=== PATIENT | female | born 1995 | race Caucasian/White ===

== ENCOUNTER 2020-02-09 09:25 | Emergency (ER) | payer SELFPAY ==
[~2020-02-09] VITALS: Ht 152.4 cm; Wt 68.2 kg
[2020-02-09 09:30] VITALS: TEMP 98.3
[2020-02-09] MEDS ORDERED: ZOFRAN ODT8 MG PO (09:40)
[2020-02-09 09:43] LABS: BASO # 0.1 (0.0-0.2); BASO % 0.6 % (0.0-2.0); EOS # 0.2 (0.0-0.7); EOS % 1.6 % (0-4.0); GRAN % 51.7 % (42.2-75.2); HEMATOCRIT 43.3 % (37.0-47.0); LYMPH # 3.5 (1.2-3.4); LYMPH % 36.1 % (20.0-51.0); MEAN CELL VOLUME 92 fl (80.0-100.0); MEAN CORPUSCULAR HEMOGLOBIN 30 pg (27.0-31.0); MEAN CORPUSCULAR HGB CONC 32 g/dl (33.0-37.0); MEAN PLATELET VOLUME 9.5 fl (7.4-10.4); MONO # 0.9 (0.1-0.6); MONO % 9.2 % (1.7-9.3); PLATELET COUNT 411 K/mm3 (130-400); RED BLOOD COUNT 4.72 M/mm3 (4.10-5.30); REDCELL DISTRIBUTION WIDTH-CV 11.8 % (11.5-14.5)
[2020-02-09 09:58] LABS: ALANINE AMINOTRANSFERASE 12 U/L (4-34); ALBUMIN 4.2 gm/dL (3.5-5.0); ALKALINE PHOSPHATASE 64 U/L (50-136); ANION GAP 8 mmol/L (7-16); AST,SGOT 22 U/L (15-37); BILIRUBIN,TOTAL 0.7 mg/dL (0.0-1.0); BLOOD UREA NITROGEN 14 mg/dL (7-17); CALCIUM 9.1 mg/dL (8.4-10.2); CARBON DIOXIDE 25 mmol/L (22-30); CHLORIDE 104 mmol/L (98-107); CREATININE, serum 1.02 (0.52-1.25); GLUCOSE 142 mg/dL (74-106); LIPASE 57 U/L (23-300); POTASSIUM 3.7 mmol/L (3.4-5.0); SODIUM 137 mmol/L (137-145); TOTAL PROTEIN 7.2 gm/dL (6.4-8.2)
[2020-02-09 09:59] LABS: C-REACTIVE PROTEIN < 0.5 mg/dL (0.0-0.9)
[2020-02-09] MEDS ORDERED: NORCO 325 MG-51 TAB PO ×2 (10:21→10:23)
[2020-02-09] MEDS ORDERED: FLOMAX 0.40.4 MG/CAP PO (10:21)
[2020-02-09 10:58] LABS: COLLECTION METHOD CLEAN CATCH
[2020-02-09 11:06] LABS: MUCOUS Present /lpf; PH 6 (5-8); SQUAMOUS EPITHELIAL 0-2 /hpf; URINE APPEARANCE Clear; URINE BACTERIA None Seen /hpf; URINE BILIRUBIN Negative (NEGATIVE); URINE BLOOD 1+ (NEGATIVE); URINE COLOR Yellow; URINE GLUCOSE Negative (NEGATIVE); URINE KETONE Negative (NEGATIVE); URINE LEUKOCYTE ESTERASE Negative (NEGATIVE); URINE NITRATE Negative (NEGATIVE); URINE PROTEIN(semi-quant) Negative (NEGATIVE); URINE UROBILINOGEN Negative (NEGATIVE)
[2020-02-09 11:25] VITALS: BP 104/62; PULSE 90
== END 2020-02-09 11:25 | disposition home or self-care (01) ==
LOC: COL.ER 09:25
PROVIDERS: Emergency Medicine
DX: N20.1 Calculus of ureter (principal); R73.9 Hyperglycemia, unspecified; Z84.1 Family history of disorders of kidney and ureter; Z32.02 Encounter for pregnancy test, result negative
CPT/HCPCS: J1885; J2270; J2405; J7030; Q9967

== ENCOUNTER 2021-02-01 04:26 | Inpatient (IN) | payer OTHER ==
[2021-02-01] VITALS (68 sets, daily range): BP systolic 69–139; BP diastolic 45–76; PULSE 54–116; TEMP 97.8–100.1
[~2021-02-01] VITALS: Ht 160 cm; Wt 85.5 kg
[~2021-02-01 04:26] MED LIST: FLOMAX 0.40.4 MG/CAP PO; NORCO 325 MG-51 TAB PO; ZOFRAN ODT8 MG PO
--- NOTE | 2021-02-01 04:30 | NUR ---
0430- patient and spouse ambulatory to the unit. patient orientated to room and changed into clean gown. patient reports gfm, no bleeding, occasional contractions and srom at 0253 this morning. patient is a at 39.2. 0340- EFM and TOCO on and tracing. Vitals taken, assessment completed. SVE reveals patient did SROM and she is 1/50/-3. Provider tin container straightener was on unit for another patient and this RN advised her of this patient and she verbally gave orders to admit her.
[2021-02-01] MEDS ORDERED: PRENATAL TABLET PO (06:03)
[2021-02-01] MEDS ORDERED: COLACE 100100 MG/CAP PO (06:04)
[2021-02-01] MEDS ORDERED: MACROBID 1100 MG/CAP PO (06:05)
[2021-02-01] MEDS ORDERED: PROMETHAZINE12.5 M5 PO (06:05)
--- NOTE | 2021-02-01 06:20 | NUR ---
Bedside report received by Alda SANDERS. Patient updated on plan of care. IV started in right hand, blood obtained and to lab, LR infusing. Patient getting more uncomfortable with contractions at this time. 0720: Dr. Shaikh called and updated. See physician notification. 0755: Dr. Shaikh at nurses station and updated on plan of care. Dr. Shaikh asked if patient was ever covid swabbed due to recent cold/sickness. Patient asked of symptoms, patient states "I have had a cold for about 3 weeks and went to Doctor, they thought it was sinus infection and was put on antibiotics, I currently have a wet mucuosy cough, my nose is less stuffy, within this last week I was unable to smell or taste as well, have not been having a fever, and was planning to go get covid tested today since Dr. Shaikh recommended it on Tuesday at my appointment". 0805: Dr. Shaikh at bedside assessing patient and FHR strip. Discusses plan of care. 0807: Bedside sono done at this time and vertex position confirmed. Patient requests epidural and C.Jerod TAPE CONTROL SKIN OR SPAR MILL OPERATOR called and notified. 0845: Patient sat up for placement of epidural and C.Jerod TAPE CONTROL SKIN OR SPAR MILL OPERATOR at bedside. FHR monitor intermittently tracing maternal heart rate due to maternal position. 0838: Single shot given and patient tolerates well. 0839: Test dose given and patient tolerates well. 0855: Patient repositioned and plan of care/safety precautions discussed. 1000: This RN at bedside and rapid covid swab done and patient tolerates well. 0805: Dr. Shaikh at bedside
[2021-02-01 06:48] LABS: HEMATOCRIT 39.9 % (37.0-47.0); HEMOGLOBIN 13.5 g/dl (12.5-16.0); MEAN CELL VOLUME 91 fl (80.0-100.0); MEAN CORPUSCULAR HEMOGLOBIN 31 pg (27.0-31.0); MEAN CORPUSCULAR HGB CONC 34 g/dl (33.0-37.0); MEAN PLATELET VOLUME 9.8 fl (7.4-10.4); PLATELET COUNT 216 K/mm3 (130-400); RED BLOOD COUNT 4.39 M/mm3 (4.10-5.30)
[2021-02-01 07:44] LABS: BAND 2 % (0-10); LYMPHOCYTE 19 % (20.0-51.0); NEUTROPHILS 70 % (42.0-75.2); PLATELET ESTIMATE NORMAL (NORMAL)
--- NOTE | 2021-02-01 10:40 | NUR ---
Patient updated that her covid came back positive and plan of care discussed and quesitons answered.
--- NOTE | 2021-02-01 12:40 | NUR ---
FHR tracing recurrent subtle late decelerations. Patient repositioned. 1330: FHR baseline increasing to 160-165bpm with moderate variability noted. Dr. Shaikh called and updated. See physician notification. 1344: Patient wedged right with peanut ball in placed and FHR decreasing to 145bpm for approx. 3 minutes and returns to 170bpm. 1500: FHR baseline continues in the 160-170bpm with moderate variability and Dr. Shaikh aware. No new orders.
--- NOTE | 2021-02-01 17:00 | NUR ---
FHR baseline 175-180bpm and Dr. Shaikh aware and updated. See physician notification. Temperature 100.[address] Shaikh order 1g of tylenol PO. Patient repositioned. 1730: FHR baseline continues in the 170-180bpm. 174: at bedside assessing FHR strip and patient, updated on plan of care. SVE 4-5/90/-2. No new orders at this time. Morrison catheter emptied. 175: Dr. Shaikh at nurses station reviewing FHR strip. Orders for drawbridge operator nurse to recheck temperature and SVE at 1900 and if FHR strip does not have moderate variabilty to call him. 1814: Zoya SANDERS given report.
--- NOTE | 2021-02-01 22:00 | NUR ---
2199 DR MADLONADO IN ROOM AND SVE WITH NO CERVICAL CHANGE SINCE LAST EXAM. C/SECT DISCUSSED, 2204 C/SECT CALLED. BIRD RAISER NOTIFIED. 2210 TO OR PER BED.
[2021-02-02] VITALS (13 sets, daily range): BP systolic 99–130; BP diastolic 54–79; PULSE 49–80; TEMP 97.6–98.5
--- NOTE | 2021-02-02 00:45 | NUR ---
0045 PERICARE DONE AND PADS CHANGED. BINDER ON. LEGS STILL HEAVY AND NUMB. EPID CATH REMOVED. BABY TO BREAST.
[2021-02-02 07:03] LABS: HEMATOCRIT 37.5 % (37.0-47.0)
--- NOTE | 2021-02-02 07:30 | NUR ---
Assisted out of bed for first time post delivery. Steady gait noted. Morrison catheter removed by this fiction and nonfiction writer prose. [place] care provided. Note patient spontaneously voids following removal of Morrison catheter. C/O pain on right side of incision. Encouraged coughing and deep breathing. Note prior to coughing and deep breathing O2 sat 94% on room air. Following, 97% on room air. Encouraged frequent coughing and deep breathing with instruction to splint abdominal incision while doing so. Note patient cough wet. Instructed to empty bladder every 2 hours, even if she does not feel the urge to void. Encouraged increased po fluid intake. Verbalizes understanding.
[2021-02-03] MEDS ORDERED: IBU600 MG PO (07:41)
[2021-02-03] MEDS ORDERED: PERCOCET 325 MG1 TA2 PO (07:42)
[2021-02-03 09:30] VITALS: BP 111/73; PULSE 82; TEMP 97.9
--- NOTE | 2021-02-03 14:00 | NUR ---
Discharge instructions and follow up care reviewed with pt and at the bedside. Both verbalized an understanding, agreed with the plan and state no questions or concerns at this time.
--- NOTE | 2021-02-03 17:00 | NUR ---
Pt discharged home via private vehicle with secured in rear facing car seat.
== END 2021-02-03 17:00 | disposition home or self-care (01) | DRG 786 ==
LOC: LDRO 04:26 → LDR 05:27
PROVIDERS: Obstetrics & Gynecology; ADMIT Obstetrics & Gynecology
PROC: 10D00Z1 Extraction of Products of Conception, Low, Open Approach (ICD-10-PCS; principal; 2021-02-01)
DX: O75.3 Other infection during labor (principal); U07.1 COVID-19; O98.52 Other viral diseases complicating childbirth; O98.82 Other maternal infectious and parasitic diseases complicating childbirth; B37.9 Candidiasis, unspecified; O76 Abnormality in fetal heart rate and rhythm complicating labor and delivery; Z3A.39 39 weeks gestation of pregnancy; Z37.0 Single live birth; Z87.442 Personal history of urinary calculi; O62.1 Secondary uterine inertia
CPT/HCPCS: J0690; J0696; J1100; J1885; J2590; J7120

== ENCOUNTER → 2022-04-08 | Outpatient (CLI) | payer BC ==
[~2022-04-08] MED LIST changes: +COLACE 100100 MG/CAP PO; +IBU600 MG PO; +MACROBID 1100 MG/CAP PO; +PERCOCET 325 MG1 TA2 PO; +PRENATAL TABLET PO; +PROMETHAZINE12.5 M5 PO
== END ==
LOC: COL.RAD 06:59
DX: O20.0 Threatened abortion (principal); Z3A.01 Less than 8 weeks gestation of pregnancy

== ENCOUNTER 2022-04-18 05:25 | Emergency (ER) | payer BC ==
[~2022-04-18] VITALS: Ht 157.5 cm; Wt 79.5 kg
[2022-04-18 05:31] VITALS: TEMP 97.9
[2022-04-18 06:03] LABS: BASO # 0.1 K/mm3 (0.0-0.2); BASO % 0.6 % (0.0-2.0); EOS # 0.2 K/mm3 (0.0-0.7); EOS % 2.1 % (0.0-4.0); GRAN # 7.6 K/mm3 (1.4-6.5); GRAN % 70.9 % (42.2-75.2); HEMOGLOBIN 14.1 g/dl (12.5-16.0); LYMPH % 18.2 % (20.0-51.0); MEAN CELL VOLUME 90 fl (80.0-100.0); MEAN CORPUSCULAR HEMOGLOBIN 30 pg (27-31); MEAN CORPUSCULAR HGB CONC 34 g/dl (33.0-37.0); MEAN PLATELET VOLUME 9.5 fl (7.4-10.4); MONO # 0.8 K/mm3 (0.1-0.6); MONO % 7.6 % (1.7-9.3); PLATELET COUNT 322 K/mm3 (130-400); RED BLOOD COUNT 4.67 M/mm3 (4.10-5.30); REDCELL DISTRIBUTION WIDTH-CV 12.1 % (11.5-14.5)
[2022-04-18] MEDS ORDERED: NORCO 325 MG-51 TAB PO (07:09)
[2022-04-18 07:46] VITALS: BP 108/50; PULSE 76
== END 2022-04-18 07:46 | disposition home or self-care (01) ==
LOC: COL.ER 05:25
PROVIDERS: Family Medicine
DX: O20.0 Threatened abortion (principal); Z28.310 Unvaccinated for COVID-19
CPT/HCPCS: J2550; J7120

== ENCOUNTER 2022-06-17 02:16 | Emergency (ER) | payer BC ==
[~2022-06-17] VITALS: Ht 157.5 cm; Wt 79.5 kg
[2022-06-17 02:19] VITALS: BP 140/86; TEMP 98
[2022-06-17 03:01] VITALS: PULSE 68
== END 2022-06-17 03:03 | disposition home or self-care (01) ==
LOC: COL.ER 02:16
DX: S01.111A Laceration without foreign body of right eyelid and periocular area, initial encounter (principal); Z23 Encounter for immunization; W26.8XXA Contact with other sharp object(s), not elsewhere classified, initial encounter; Y93.02 Activity, running

== ENCOUNTER 2023-08-21 10:36 | Outpatient (CLI) | payer BC ==
[~2023-08-21] VITALS: Ht 160 cm; Wt 95.5 kg
--- NOTE | 2023-08-21 10:40 | NUR ---
PT AMBULATORY TO UNIT WITH SPOUSE, REPORTS DECREASED FM AND CTX OVERNIGHT 5MIN APART. NO LOF, SOME MOVEMENT BUT NOT OFTEN NORMAL. EFM CAT 1, SVE /-3 BALLOTABLE. PT TOLERATED WELL. DR. RICARDO NOTIFIED.
[2023-08-21] MEDS ORDERED: WELLBUTRIN XL150 MG PO (11:29)
[2023-08-21 11:40] VITALS: BP 110/63; PULSE 96; TEMP 98.1
[2023-08-21 13:00] VITALS: BP 122/58; PULSE 83
--- NOTE | 2023-08-21 13:10 | NUR ---
PT COMFORTABLE WITH DC PLAN AND WILL RETURN WITH ANY VAGINAL BLEEDING, CONSISTENT CTX, LOF, OR DECREASED FM.
== END 2023-08-21 13:10 | disposition home or self-care (01) ==
LOC: LDRO 10:36 → LDR 10:40 → LDRO 13:10
DX: Z34.93 Encounter for supervision of normal pregnancy, unspecified, third trimester (principal); Z3A.36 36 weeks gestation of pregnancy
CPT/HCPCS: OP; J3105; J7120

== ENCOUNTER 2023-09-08 05:25 | Inpatient (IN) | payer BC ==
[~2023-09-08] VITALS: Ht 160 cm; Wt 94.5 kg
[2023-09-08] VITALS (17 sets, daily range): BP systolic 85–108; BP diastolic 40–61; PULSE 70–95; TEMP 97.4–98.4
[~2023-09-08 05:25] MED LIST changes: +WELLBUTRIN XL150 MG PO; +ZOFRAN 4MG T4 MG/TAB PO
[2023-09-08] MEDS ORDERED: LR 1,000 ML IV SCH ×2 (05:30→06:15)
[2023-09-08 06:37] LABS: HEMOGLOBIN 12.1 g/dl (12.5-16.0); MEAN CELL VOLUME 90 fl (80.0-100.0); MEAN CORPUSCULAR HEMOGLOBIN 31 pg (27-31); MEAN CORPUSCULAR HGB CONC 34 g/dl (33.0-37.0); MEAN PLATELET VOLUME 9.3 fl (7.4-10.4); PLATELET COUNT 269 K/mm3 (130-400); RED BLOOD COUNT 3.97 M/mm3 (4.10-5.30); REDCELL DISTRIBUTION WIDTH-CV 14.1 % (11.5-14.5)
[2023-09-08 06:43] LABS: HEMATOCRIT 35.8 % (37.0-47.0)
[2023-09-08] MEDS ORDERED: Ketorolac 30 MG/ML VIAL ONE (06:54)
[2023-09-08] MEDS ORDERED: Phenylephrine 10 MG/ML VIAL ONE (06:54)
[2023-09-08] MEDS ORDERED: Oxytocin 10 UNITS/ML VIAL ONE (06:54)
[2023-09-08] MEDS ORDERED: dexAMETHasone 10 MG/ML VIAL ONE (06:54)
[2023-09-08] MEDS ORDERED: NS 30 ML IV ONE (06:54)
[2023-09-08] MEDS ORDERED: Ondansetron 4 MG/2 ML VIAL ONE (06:54)
[2023-09-08] MEDS ORDERED: EPINEPHrine 1 MG/1 ML Ampule ONE (07:58)
[2023-09-08] MEDS ORDERED: Magnes Hydrox (MOM) 80 MG/ML 30 ML CUP PO PRN (08:30)
[2023-09-08] MEDS ORDERED: Loratadine 10 MG TAB PO PRN (08:30)
--- NOTE | 2023-09-08 08:30 | NUR ---
UNABLE TO TRACE BLOOD PRESSURE AND O2 SAT DUE TO MATERNAL POSITION AND HABITUS. PT ALERT AND ORIENTED AT THIS TIME BREAST FEEDING BABY OBSERVED PER THIS RN.
[2023-09-08 08:42] LABS: PLATELET ESTIMATE NORMAL (NORMAL)
[2023-09-08 08:43] LABS: ANISOCYTOSIS 1+; STOMATOCYTE 1+
--- NOTE | 2023-09-08 08:55 | NUR ---
PT TRANSFERED VIA BED FROM PACU TO ROOM. MOM HOLDING BABY DURING TRANSFER, MATERNAL VS STABLE. PT AND SPOUSE ORIENTED TO ROOM AND PLAN OF CARE, EDUCATION PACKET GIVEN, VS BEGUN. PT SPOUSE SUPPORTIVE AT BEDSIDE.
[2023-09-08 08:59] LABS: BAND 1 % (0-10); EOSINOPHIL 1 % (0-4); LYMPHOCYTE 21 % (20.0-51.0); METAMYELOCYTE 4 % (0-0); NEUTROPHILS 65 % (42.0-75.2)
[2023-09-08] MEDS ORDERED: buPROPion XL (24-HR) 150 MG TAB PO SCH (09:00)
[2023-09-08] MEDS ORDERED: Prenatal Vitamins/Iron/FA TAB PO SCH (09:00)
[2023-09-08] MEDS ORDERED: oxyCODONE 5 MG TAB PO PRN (11:00)
[2023-09-08] MEDS ORDERED: LR 1,000 ML IV PRN (11:00)
[2023-09-08] MEDS ORDERED: Acetaminophen 500 MG TAB PO SCH (11:00)
[2023-09-08] MEDS ORDERED: Measles/Mumps/Rubella Virus Vaccine Live w Diluent 0.5 ML VIAL SQ SCH (11:00)
[2023-09-08] MEDS ORDERED: Morphine 4 MG/ML VIAL IV PRN (11:00)
[2023-09-08] MEDS ORDERED: Naloxone 0.4 MG/ML VIAL IV PRN (11:00)
[2023-09-08] MEDS ORDERED: Ondansetron 4 MG/2 ML VIAL IV PRN ×2 (11:00→11:15)
--- NOTE | 2023-09-08 11:00 | NUR ---
UNABLE TO TRACE VS DUE TO MATERNAL POSITION AND HABITUS, MOTHER BABY. THIS NURSE OBSERVES MOTHER AWAKE AND ALERT
[2023-09-08] MEDS ORDERED: diphenhydrAMINE 50 MG/ML 1 ML VIAL IV PRN (11:15)
[2023-09-08] MEDS ORDERED: Ibuprofen 600 MG TAB PO SCH (14:19)
[2023-09-08] MEDS ORDERED: Sennosides/Docusate 8.6-50 MG TAB PO SCH (17:00)
[2023-09-08] MEDS ORDERED: traZODone 50 MG TAB PO PRN (21:00)
[2023-09-09 02:50] VITALS: BP 105/52; PULSE 67; TEMP 97.8
[2023-09-09 08:00] VITALS: BP 94/54; PULSE 75; TEMP 97.5
[2023-09-09 08:03] LABS: HEMOGLOBIN 10.9 g/dl (12.5-16.0)
[2023-09-09 08:07] LABS: HEMATOCRIT 33.2 % (37.0-47.0)
[2023-09-09] MEDS ORDERED: ROXICODONE 55 MG/TAB PO (08:25)
[2023-09-09] MEDS ORDERED: MOTRIN 600600 MG/TAB PO (08:25)
[2023-09-09] MEDS ORDERED: TYLENOL 500MG500 MG PO (08:26)
[2023-09-09 20:00] VITALS: BP 99/57; PULSE 97; TEMP 98.7
[2023-09-10 07:00] VITALS: BP 108/59; PULSE 71; TEMP 97.6
--- NOTE | 2023-09-10 07:15 | NUR ---
Rests in bed, alert. Ibuprofen 600 mg given as ordered. Denies any other needs at this time. Let patient know to call me when baby awakes.
--- NOTE | 2023-09-10 10:40 | NUR ---
Tylenol 1000 mg given per request and as ordered. Discharge instructions given, verbalizes understanding.
== END 2023-09-10 10:52 | disposition home or self-care (01) | DRG 788 ==
LOC: OB 05:25
PROVIDERS: ADMIT Obstetrics & Gynecology
PROC: 10D00Z1 Extraction of Products of Conception, Low, Open Approach (ICD-10-PCS; principal; 2023-09-08)
DX: O34.211 Maternal care for low transverse scar from previous cesarean delivery (principal); Z3A.39 39 weeks gestation of pregnancy; Z37.0 Single live birth
CPT/HCPCS: J0171; J0665; J0690; J1100; J1885; J2270; J2371; J2405; J2590; J7120